=== PATIENT | female | born 1990 | race Caucasian/White ===

== ENCOUNTER 2018-05-04 11:50 | Observation (INO) | payer MEDICAID ==
[~2018-05-04] VITALS: Ht 154.9 cm; Wt 61.0 kg
[2018-05-04] MEDS ORDERED: SODIUM CHLORIDE 0.9% 1,000 ML IV ONE (13:00)
[2018-05-04] MEDS ORDERED: TERBUTALINE SULFATE 1MG/ML VIAL SUBCUT NR (13:00)
[2018-05-04] MEDS ORDERED: ONDANSETRON HCL 4MG/2ML INJ IM NR (13:30)
[2018-05-04] MEDS ORDERED: FAMOTIDINE 20MG/2ML VIAL IV NR (14:45)
[2018-05-04 15:00] LABS: CLARITY URINE CLEAR (CLEAR); COLOR URINE DARK YELLOW (YELLOW); KETONES URINE 2+ (NEGATIVE); LEUKOCYTE ESTERASE URINE 2+ (NEGATIVE); NITRITE URINE NEGATIVE (NEGATIVE); OCCULT BLOOD URINE 1+ (NEGATIVE); PROTEIN URINE 1+ (NEGATIVE); SPECIFIC GRAVITY URINE 1.023 (1.005-1.030)
[2018-05-04] MEDS ORDERED: METOCLOPRAMIDE HCL 10MG/2ML VIAL IV NR (15:00)
[2018-05-04 15:25] LABS: METHADONE URINE SCREEN NEGATIVE (NEGATIVE); OPIATES URINE SCREEN NEGATIVE (NEGATIVE); PHENCYCLIDINE URINE SCREEN NEGATIVE (NEGATIVE)
[2018-05-04 15:29] LABS: *BARBITURATES SCREEN URINE NEGATIVE (NEGATIVE); *BENZODIAZEPINES SCREEN URINE NEGATIVE (NEGATIVE); *COCAINE SCREEN URINE NEGATIVE (NEGATIVE)
[2018-05-04 15:30] LABS: *AMPHETAMINES SCREEN URINE PRESUMTIVE POSITIVE (NEGATIVE); CANNABINOID URINE SCREEN PRESUMTIVE POSITIVE (NEGATIVE)
[2018-05-04] MEDS ORDERED: METRONIDAZOLE 500MG TABLET PO NR (15:30)
[2018-05-04] MEDS ORDERED: METRONIDAZOLE 1000 MG PREMIX 200 ML IV ONE (16:00)
[2018-05-04] MEDS: METRONIDAZOLE 500 MG PREMIX 100 ML IV SCH ×2 (16:29→17:54)
[2018-05-10 04:17] LABS: AMPHETAMINE CONF URINE Positive (.); CANNABINOID CONFIRMATION URINE Positive (.)
== END 2018-05-04 18:35 | disposition home or self-care (01) ==
LOC: L&D 11:50
PROVIDERS: ADMIT Specialist; ATTEND Specialist
DX: O62.9 Abnormality of forces of labor, unspecified (principal); Z3A.39 39 weeks gestation of pregnancy
CPT/HCPCS: 80305; 80307; 80349; 81003; 87086; 96365; 96366; 96372; 96375; G0378; J2405; J2765; J3105; J3490; J7030

== ENCOUNTER 2019-01-06 03:30 | Emergency (ER) | payer MEDICAID, OTHER ==
[~2019-01-06] VITALS: Ht 154.9 cm; Wt 49.0 kg
[2019-01-06] MEDS ORDERED: SODIUM CHLORIDE 0.9% 1,000 ML IV ONE (04:10)
[2019-01-06] MEDS ORDERED: ACETAMINOPHEN 325MG TABLET PO ONE (05:00)
[2019-01-06] MEDS ORDERED: BACITRACIN ZINC OINT UDPKT TOP ONE (05:00)
[2019-01-06] MEDS ORDERED: TETRACAINE 0.5% OPHTH DROPS 4ML OP NR (06:15)
[2019-01-06] MEDS ORDERED: BALANCED SALT IRRIG SOLN 15ML IR NR (06:15)
[2019-01-06] MEDS ORDERED: FLUORESCEIN SODIUM 1MG/STRIP OP NR (06:15)
[2019-01-06 11:30] VITALS: BP 110/68
== END 2019-01-06 12:09 | disposition home or self-care (01) ==
LOC: ER 03:36
DX: O9A.211 Injury, poisoning and certain other consequences of external causes complicating pregnancy, first trimester (principal); T20.19XA Burn of first degree of multiple sites of head, face, and neck, initial encounter; O99.341 Other mental disorders complicating pregnancy, first trimester; F32.9 Major depressive disorder, single episode, unspecified; T31.0 Burns involving less than 10% of body surface; O99.331 Smoking (tobacco) complicating pregnancy, first trimester; O99.321 Drug use complicating pregnancy, first trimester; F17.200 Nicotine dependence, unspecified, uncomplicated; F15.90 Other stimulant use, unspecified, uncomplicated; F12.10 Cannabis abuse, uncomplicated; Z3A.08 8 weeks gestation of pregnancy; X03.8XXA Other exposure to controlled fire, not in building or structure, initial encounter; Y93.89 Activity, other specified; Y92.89 Other specified places as the place of occurrence of the external cause; Y99.8 Other external cause status
CPT/HCPCS: 36415; 76801; 76817; 81025; 84702; 99284; J7030; Z7610

== ENCOUNTER 2019-08-07 07:07 | Observation (INO) | payer OTHER ==
[~2019-08-07] VITALS: Ht 154.9 cm; Wt 65.8 kg
[2019-08-07] MEDS ORDERED: LACTATED RINGERS 1,000 ML IV SCH (08:30)
== END 2019-08-07 11:30 | disposition home or self-care (01) ==
LOC: 8 EST LDRP 07:07
PROVIDERS: ADMIT Obstetrics & Gynecology; ATTEND Obstetrics & Gynecology
DX: O26.899 Other specified pregnancy related conditions, unspecified trimester (principal); R10.9 Unspecified abdominal pain; Z3A.00 Weeks of gestation of pregnancy not specified
CPT/HCPCS: 99281; G0378

== ENCOUNTER 2019-09-15 20:23 | Emergency (ER) | payer OTHER ==
[~2019-09-15] VITALS: Ht 154.9 cm; Wt 54.0 kg
[2019-09-16 01:31] LABS: BASOPHILS % 0.8 % (0.0-2.0); EOSINOPHILS % 1.2 % (0.0-5.0); HEMATOCRIT. 38.5 % (36.0-48.0); MEAN CORPUSCULAR HEMOGLOBIN 31.3 pg (28.0-32.0); MEAN CORPUSCULAR VOLUME 92.6 fL (81.0-99.0); PLATELET 275 x1000/uL (130-400); RED BLOOD CELL COUNT 4.16 mill/uL (4.2-5.4); RED CELL DISTRIBUTION WIDTH 14.5 % (11.6-14.6)
[2019-09-16 01:44] LABS: CHLORIDE 107 mEq/L (98-107)
[2019-09-16 01:53] LABS: B-HCG QUANTITATIVE < 1 mIU/mL (<3)
[2019-09-16 03:05] VITALS: BP 113/82
== END 2019-09-16 03:46 | disposition home or self-care (01) ==
LOC: ER 20:23
DX: D25.9 Leiomyoma of uterus, unspecified (principal); N93.9 Abnormal uterine and vaginal bleeding, unspecified; F17.200 Nicotine dependence, unspecified, uncomplicated; F12.10 Cannabis abuse, uncomplicated; F15.10 Other stimulant abuse, uncomplicated
CPT/HCPCS: 36415; 76830; 76856; 80053; 84702; 85025; 86850; 86900; 99284

== ENCOUNTER 2021-06-12 13:41 | Inpatient (IN) | payer OTHER ==
[~2021-06-12] VITALS: Ht 154.9 cm; Wt 63.5 kg
[2021-06-12 15:12] LABS: BASOPHILS % 0.3 % (0.0-2.0); EOSINOPHILS % 1.5 % (0.0-5.0); HEMATOCRIT. 34.6 % (36.0-48.0); HEMOGLOBIN. 11.2 g/dL (12.0-16.0); LYMPHOCYTES % 12.5 % (20.0-50.0); MEAN CORPUSCULAR HEMOGLOBIN 29.2 pg (28.0-32.0); MEAN CORPUSCULAR VOLUME 89.9 fL (81.0-99.0); MEAN PLATELET VOLUME 8.3 fl (7.4-10.4); MONOCYTES % 6.1 % (2.0-8.0); NEUTROPHILS % 79.6 % (40.0-76.0); PLATELET 550 x1000/uL (130-400); RED BLOOD CELL COUNT 3.85 mill/uL (4.2-5.4); RED CELL DISTRIBUTION WIDTH 15.9 % (11.6-14.6)
[2021-06-12 15:31] LABS: CHLORIDE 108 mEq/L (98-107)
[2021-06-12] MEDS ORDERED: PIPERACILLIN/TAZ 3.375G PREMIX 50 ML IV ONE (17:45)
[2021-06-12] MEDS ORDERED: SODIUM CHLORIDE 0.9% 1000ML BAG (SEPSIS BOLUS) IV ONE (17:45)
[2021-06-12] MEDS ORDERED: VANCOMYCIN 1 G PREMIX 200 ML IV ONE (17:45)
[2021-06-12] MEDS ORDERED: MORPHINE SULFATE 4 MG/ML CPJ (NOT FOR IM USE) IV STA (17:47)
[2021-06-12] MEDS ORDERED: ONDANSETRON HCL 4MG/2ML INJ IV STA (17:47)
[2021-06-12 20:33] LABS: CLARITY URINE CLEAR (CLEAR); COLOR URINE DARK YELLOW (YELLOW); KETONES URINE TRACE (NEGATIVE); LEUKOCYTE ESTERASE URINE TRACE (NEGATIVE); NITRITE URINE NEGATIVE (NEGATIVE); OCCULT BLOOD URINE NEGATIVE (NEGATIVE); PH URINE 5.5 (4.5-8.0); PROTEIN URINE 1+ (NEGATIVE); SPECIFIC GRAVITY URINE 1.046 (1.005-1.030)
[2021-06-12] MEDS ORDERED: IOHEXOL-300 100 ML BOTTLE ONE (21:36)
[2021-06-13] MEDS ORDERED: VANCOMYCIN 1 G PREMIX 200 ML IV SCH ×2 (01:15→13:00)
[2021-06-13] MEDS ORDERED: PIPERACILLIN/TAZ 3.375G PREMIX 50 ML IV ONE (01:15)
[2021-06-13] MEDS ORDERED: MORPHINE SULFATE 4 MG/ML CPJ (NOT FOR IM USE) IV ONE (01:15)
[2021-06-13] MEDS ORDERED: MORPHINE SULFATE 2 MG/ML CPJ (NOT FOR IM USE) IV PRN (10:30)
[2021-06-13] MEDS ORDERED: NALOXONE HCL 0.4MG/ML VIAL IV PRN (10:45)
[2021-06-13] MEDS ORDERED: ACETAMINOPHEN 325MG TABLET PO PRN (11:00)
[2021-06-13 11:50] VITALS: BP 96/64
[2021-06-13 12:00] VITALS: BP 104/59
[2021-06-13] MEDS ORDERED: PIPERACILLIN/TAZOBACTAM 3.375 G in DEXTROSE 5% WATER 50 ML IV SCH (13:00)
[2021-06-13 13:21] VITALS: BP 104/59
[2021-06-13 15:51] LABS: BASOPHILS % 0.2 % (0.0-2.0); EOSINOPHILS % 1.7 % (0.0-5.0); HEMOGLOBIN. 10.2 g/dL (12.0-16.0); MEAN CORPUSCULAR HEMOGLOBIN 29.5 pg (28.0-32.0); MEAN CORPUSCULAR VOLUME 89.9 fL (81.0-99.0); MEAN PLATELET VOLUME 8.3 fl (7.4-10.4); MONOCYTES % 5.9 % (2.0-8.0); NEUTROPHILS % 74.2 % (40.0-76.0); PLATELET 524 x1000/uL (130-400); RED BLOOD CELL COUNT 3.45 mill/uL (4.2-5.4); RED CELL DISTRIBUTION WIDTH 15.7 % (11.6-14.6)
[2021-06-13 16:05] LABS: CHLORIDE 107 mEq/L (98-107)
== END 2021-06-13 15:52 | disposition short-term general hospital (02) | DRG 561 ==
LOC: ER 13:56 → 6EST 06-13 05:52 → ENRESERV 06-13 07:18
PROVIDERS: ADMIT Internal Medicine; ATTEND Internal Medicine
DX: O86.01 Infection of obstetric surgical wound, superficial incisional site (principal); O90.89 Other complications of the puerperium, not elsewhere classified; Z20.822 Contact with and (suspected) exposure to COVID-19; Z98.891 History of uterine scar from previous surgery
CPT/HCPCS: 36415; 71045; 74177; 80053; 81003; 83605; 85025; 87426; 93005; 99285; J2270; J2405; J2543; J3370; J7030; J7060; Q9967